=== PATIENT | male | born 1985 | race Two or more races ===

== ENCOUNTER 2019-06-22 18:42 | Emergency (ER) | payer MEDICAID ==
[~2019-06-22] VITALS: Ht 182.9 cm; Wt 90.7 kg
[2019-06-22] MEDS ORDERED: LORAZEPAM INJ 2 MG/ML VIAL ONE (19:24)
[2019-06-22] MEDS ORDERED: LORAZEPAM INJ 2 MG/ML VIAL IV ONE (19:30)
[2019-06-22] MEDS ORDERED: IV NS 0.9% 1,000 ML BAG IV ONE (19:30)
--- NOTE | 2019-06-22 19:37 | NUR ---
BIBS. C/O "MAY HAVE EATEN A BROWNIE WITH TOO MUCH WEED INSIDE, FEELING ANXIOUS RIGHT NOW" AOX4. VSS. AMBULATORY. -SOB NOTED. -ACUTE DISTRESS AT THIS TIME.
--- NOTE | 2019-06-22 21:59 | NUR ---
IV removed. Catheter intact and site benign. Pressure and 4x4 applied to site. No bleeding noted.Patient discharged to home in stable condition. Written and verbal after care instructions given. Patient verbalizes understanding of instruction.
[2019-06-22 22:07] VITALS: BP 133/88
== END 2019-06-22 22:07 | disposition home or self-care (01) ==
LOC: ER 18:44
DX: F41.9 Anxiety disorder, unspecified (principal); F12.929 Cannabis use, unspecified with intoxication, unspecified; Z60.2 Problems related to living alone
CPT/HCPCS: 96374; 99284; J2060; J7030